=== PATIENT | male | born 1935 | race Caucasian/White ===

== ENCOUNTER → 2020-12-08 14:11 | Outpatient (CLI) | payer OTHER, SELFPAY ==
[2020-12-08 14:48] LABS: Add Manual Diff / Slide Review NO; Basophils Absolute Auto 0 /uL (0-100); Basophils Percent Auto 0.5 % (0-2); Eosinophils Absolute Auto 200 /uL (0-450); Eosinophils Percent Auto 2.5 % (2-4); Hematocrit 34.7 % (41-53); Lymphocytes Absolute Auto 1500 /uL (1100-4500); Lymphocytes Percent Auto 23.6 % (25-40); Mean Corpuscular HGB Conc 34.7 % (30-36); Mean Corpuscular Hemoglobin 30.8 PG (26-34); Mean Corpuscular Volume 88.6 fL (80-100); Monocytes Absolute Auto 600 /uL (0-900); Monocytes Percent Auto 9.8 % (3-14); Neutrophils Absolute Auto 3900 /uL (1500-7000); Neutrophils Percent Auto 63.6 % (50-75); Platelet Count 215 X10^3/uL (150-400); Red Blood Cell Count 3.91 X10^6/uL (4.5-5.9); Red Cell Distribution Width 13.6 % (11.6-14.8); White Blood Cell Count 6.2 X10^3/uL (4.5-11.0)
[2020-12-08 15:16] LABS: BUN Creatinine Ratio 15.7 (6-22); Blood Urea Nitrogen 17 mg/dL (9-20); Calcium 9.4 mg/dL (8.4-10.2); Carbon Dioxide 29 mmol/L (22-32); Chloride 102 mmol/L (98-107); Estimated Glomerular Filt Rate > 60.0 mL/min (>60); Glucose 116 mg/dL (80-110); HEMOLYSIS < 15 (0-50); Potassium 4.8 mmol/L (3.4-5.1); Sodium 139 mmol/L (137-145)
[2020-12-08 15:18] LABS: Hemoglobin A1C% w Est Avg Glu 6.1 % (4.0-6.0)
== END ==
PROVIDERS: Family Provider Family Medicine; PCP Student in an Organized Health Care Education/Training Program; Referring Provider Student in an Organized Health Care Education/Training Program; Visit Provider Student in an Organized Health Care Education/Training Program
DX: I10 Essential (primary) hypertension (principal); E11.9 Type 2 diabetes mellitus without complications; I25.118 Atherosclerotic heart disease of native coronary artery with other forms of angina pectoris
CPT/HCPCS: 36415; 80048; 83036; 85025

== ENCOUNTER → 2021-07-07 12:27 | Outpatient (CLI) | payer OTHER, SELFPAY ==
--- NOTE | 2021-07-07 12:28 | DI.CT.S_ITS ---
PROCEDURE: CT CHEST WO CON INDICATIONS: Right chest wall mass TECHNIQUE: Noncontrast 5 mm thick sections acquired from the pulmonary apices to the posterior costophrenic angles. 1 mm lung window, 5 mm thick coronal and sagittal and 7 mm axial MIP reformats were then acquired. For radiation dose reduction, the following was used: automated exposure control, adjustment of mA and/or kV according to patient size. COMPARISON: None. FINDINGS: Image quality: Excellent. Lungs and pleura: Biapical pleural thickening/scarring. No consolidation, pleural effusions or pneumothorax. No suspicious nodule or mass. Narrowing of the trachea in the transverse dimension. Dilatation of the bronchioles. Mediastinum: Heart size is normal. No pericardial effusion. Coronary artery calcifications. No mediastinal adenopathy by size criteria. Thoracic aorta and central pulmonary arteries are normal in size. Calcified atheromatous change of the aorta. Esophagus is normal in caliber. Small hiatal hernia. Bones and chest wall: No suspicious bony lesions. No vertebral body compression fractures. No axillary or supraclavicular adenopathy by size criteria. A 6.3 x 8.5 x 5.2 cm mass is seen in the right axillary region with area hypoattenuation. Thyroid gland demonstrates homogeneous attenuation. Abdomen: Visualized upper abdominal solid organs and bowel loops appear normal in the absence of contrast. IMPRESSION: Right axillary mass as detailed above, which may contain a hematocrit level or necrotic area. Differential considerations include a neoplasm or hematoma. Dictated by: Lico Grant M.D. on 07/07/2021 at 14:29 Approved by: Lico Grant M.D. on 07/07/2021 at 14:42
== END ==
PROVIDERS: Family Provider Family Medicine; PCP Student in an Organized Health Care Education/Training Program; Referring Provider Student in an Organized Health Care Education/Training Program; Visit Provider Student in an Organized Health Care Education/Training Program
DX: R22.2 Localized swelling, mass and lump, trunk (principal); K44.9 Diaphragmatic hernia without obstruction or gangrene; I25.10 Atherosclerotic heart disease of native coronary artery without angina pectoris
CPT/HCPCS: 71250

== ENCOUNTER 2021-10-04 22:03 | Inpatient (IN) | payer OTHER, SELFPAY ==
[2021-10-04 22:06] VITALS: PULSE 81; O2SAT 97
[2021-10-04 22:07] VITALS: BP 143/69; PULSE 82; O2SAT 96
[2021-10-04 22:15] VITALS: BP 143/69; PULSE 82; RESP 22; TEMP 38.4; O2SAT 97; BMI 26.9
--- NOTE | 2021-10-04 22:15 | DI.RAD.S_ITS ---
PROCEDURE: XR CHEST 1V INDICATIONS: CHEST PROBLEMS TECHNIQUE: One view of the chest was acquired. COMPARISON: [facility], , CHEST 1 VIEW, 06/06/2017, 11:50. FINDINGS: Surgical changes and devices: The calf veins were not well evaluated due to edema. Lungs and pleura: There are indistinct left retrocardiac opacities consistent with consolidation or atelectasis. No pleural effusions or pneumothorax. Mediastinum: Mediastinal contours appear normal. Heart size is normal. Bones and chest wall: No suspicious bony lesions. Overlying soft tissues appear unremarkable. IMPRESSION: 1. Left retrocardiac opacities consistent with consolidation or atelectasis. Dictated by: Skyler Urrutia M.D. on 10/04/2021 at 23:36 Approved by: Skyler Urrutia M.D. on 10/04/2021 at 23:38
--- NOTE | 2021-10-04 22:15 | ED_ITS ---
HPI - Sepsis General Chief Complaint: Fever Evaluation Narrative: 86-year-old male former smoker with history of hyperlipidemia, hypertension and type 2 diabetes presents by EMS for evaluation of fever, shaking chills generalized weakness contributing to at least 2 falls in the absence of injury. Additionally, he complains of urinary frequency and urgency. Denies much in the way of runny nose, sore throat or cough but feels generally fatigued and weak. He denies abdominal pain or diarrhea. Review of Systems Review of Systems Narrative: GENERAL: See HPI HEENT: Denies sinus pain, ear pain, sore throat, difficulty swallowing, dizziness. RESPIRATORY: See HPI CARDIOVASCULAR: Denies chest pain, palpitations, orthopnea, edema, GASTROINTESTINAL: Denies nausea, vomiting, abdominal pain, diarrhea, constipation, melena. : See HPI MUSCULOSKELETAL: denies weakness, joint pain, or bony pain SKIN: Denies rash, skin lesions, or other NEUROLOGIC: Denies weakness, headache, numbness, change in speech, confusion, seizures, incoordination. PSYCHIATRIC: No concerning psychosocial issues. 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 Well-developed patient, in mild distress. Generally weak, ill-appearing HEAD: Atraumatic. Normocephalic. EYES: Pupils equal round and reactive. Extraocular motions intact. No scleral icterus. No injection or drainage. ENT: Nose without bleeding, purulent drainage. Throat without erythema, tonsillar hypertrophy or exudate. Airway patent. NECK: Trachea midline. Non tender CARDIOVASCULAR: Regular rate and rhythm without murmurs, gallops, or rubs. RESPIRATORY: Clear to auscultation. Faint crackles in bilateral bases emergency department suggesting GASTROINTESTINAL: Abdomen soft, non-tender, nondistended. EXTREMITIES: No edema or joint tenderness. BACK: Nontender without deformity or crepitance. No flank tenderness. NEURO: AOx3. SKIN: No rash or erythema of visible areas Initial Vital Signs Initial Vital Signs: Vital Signs Pulse Rate 81 10/04/21 22:06 Pulse Oximetry 97 10/04/21 22:06 Course Orders Ordered: ED Orders 10/04/21 22:15 XR chest 1V Stat 10/04/21 22:27 COVID19 -Nasal RAPID/Pre-Proc Stat Complete Blood Count AUTO DIFF Stat Comprehensive Metabolic Panel Stat Lactate (Lactic Acid) Stat Procalcitonin Stat Troponin & CK Cardiac Panel Stat 10/04/21 22:40 EKG-12 Lead Stat 10/04/21 22:50 Blood Culture Stat 10/04/21 23:16 Urinalysis and Microscopic Stat Urine Culture Stat Acetaminophen (Acetaminophen 325 Mg Tablet) 650 mg PO Q6HR PRN PRN Reason: Fever/Mild Pain (1-3) Azithromycin (Azithromycin 250 Mg Tablet) 500 mg PO DAILY ANA PAULA Stop: 10/09/21 00:00 Dextrose (Dextrose 50 % In Water 25 Gm/50 Ml Syringe) 25 gm IV PRN PRN PRN Reason: Hypoglycemia Enoxaparin Sodium (Enoxaparin 40 Mg/0.4 Ml Syringe) 40 mg SUBCUT DAILY [facility] Enoxaparin Sodium (Enoxaparin 40 Mg/0.4 Ml Syringe) 40 mg SUBCUT DAILY [facility] Sodium Chloride (Normal Saline 0.9%) 2,409 mls @ 803 mls/hr 30 ml/kg infuse over 3 hr (2409 ml) IV NOW ONE Stop: 10/05/21 02:58 Last Admin: 10/05/21 00:11 Dose: 803 mls/hr Documented By: MONTY Sodium Chloride (Normal Saline 0.9%) 1,000 mls @ 100 mls/hr IV CONT ANA PAULA Stop: 11/04/21 10:59 Ceftriaxone Sodium 1,000 mg/ (Sodium Chloride) 100 mls @ 200 mls/hr IV Q24H ANA PAULA Stop: 10/11/21 00:00 Insulin Human Lispro (Insulin Lispro 100 Unit/Ml 3ml Vial) 0 unit SUBCUT ACHS ANA PAULA; Protocol Ondansetron HCl (Ondansetron 4 Mg/2 Ml Inj) 4 mg IV Q6HR PRN PRN Reason: Nausea And Vomiting Discontinued Medications Ceftriaxone Sodium 2,000 mg/ (Sodium Chloride) 100 mls @ 200 mls/hr IV NOW ONE Stop: 10/05/21 00:00 Last Admin: 10/05/21 00:12 Dose: 200 mls/hr Documented By: MONTY Azithromycin 500 mg/ Dextrose 250 mls @ 250 mls/hr IV NOW ONE Stop: 10/05/21 00:00 Vital Signs Vital signs: Vital Signs - 8 hr 10/04/21 22:15 10/04/21 22:06 10/04/21 22:07 Temperature 101.2 F H Pulse Rate 82 81 Respiratory Rate 22 Blood Pressure 143/69 H 143/69 H Pulse Oximetry 97 97 Oxygen Delivery Method Room Air 10/04/21 22:07 10/04/21 22:30 10/04/21 22:30 Temperature Pulse Rate 82 80 Respiratory Rate 20 Blood Pressure 143/66 H Pulse Oximetry 96 96 Oxygen Delivery Method 10/04/21 23:00 10/04/21 23:00 10/04/21 23:30 Temperature Pulse Rate 81 Respiratory Rate 14 Blood Pressure 146/67 H 144/63 H Pulse Oximetry 95 Oxygen Delivery Method 10/04/21 23:30 Temperature Pulse Rate 79 Respiratory Rate 17 Blood Pressure Pulse Oximetry 96 Oxygen Delivery Method Sepsis Guideline Criteria Treatment Initiated Antibiotics:: IV antimicrobials will be initiated as soon as possible after recognition of sepsis state and within one hour for both sepsis and septic shock. MDM - Sepsis Lab Data Result diagrams: 10/04/21 22:27 10/04/21 22:27 Labs: Lab Results 10/04/21 10/04/21 10/04/21 Range/Units 22:27 22:27 22:27 WBC 13.4 H (4.5-11.0) X10^3/uL RBC 3.85 L (4.5-5.9) X10^6/uL Hgb 11.4 L (13.5-17.5) g/dL Hct 32.8 L (41-53) % MCV 85.3 (80-100) fL MCH 29.6 (26-34) PG MCHC 34.8 (30-36) % RDW 13.9 (11.6-14.8) % Plt Count 171 (150-400) X10^3/uL Neut % (Auto) 86.3 H (50-75) % Lymph % (Auto) 5.3 L (25-40) % [place] % (Auto) 7.3 (3-14) % Eos % (Auto) 0.5 L (2-4) % Baso % (Auto) 0.6 (0-2) % Neut # (Auto) 63874 H (2821-3058) /uL Lymph # (Auto) 700 L (1841-7041) /uL [place] # (Auto) 1000 H (0-900) /uL Eos # (Auto) 100 (0-450) /uL Baso # (Auto) 100 (0-100) /uL Sodium 133 L (137-145) mmol/L Potassium 4.3 (3.4-5.1) mmol/L Chloride 99 (98-107) mmol/L Carbon Dioxide 25 (22-32) mmol/L BUN 29 H (9-20) mg/dL Creatinine 1.38 H (0.66-1.25) mg/dL Estimated GFR 49 L (>60) mL/min BUN/Creatinine Ratio 21.0 (6-22) Glucose 144 H (80-110) mg/dL Lactate 1.4 (0.7-2.1) mmol/L Calcium 8.7 (8.4-10.2) mg/dL Total Bilirubin 1.2 (0.2-1.3) mg/dL AST 18 (17-59) IU/L ALT 14 (<50) IU/L Alkaline Phosphatase 87 (38-126) U/L Total Creatine Kinase 71 (55-170) U/L CK-MB (CK-2) TNP CK-MB (CK-2) Rel Index TNP Troponin I < 0.012 (0.01-0.034) ng/mL Total Protein 7.7 (6.3-8.2) g/dL Albumin 4.1 (3.5-5.0) g/dL Globulin 3.6 (1.7-4.1) g/dL Albumin/Globulin Ratio 1.1 (1.0-2.8) Procalcitonin 0.20 (<0.5) ng/mL Urine Color Urine Appearance Urine pH (4.5-8.0) Ur Specific [place] (1.000-1.035) Urine Protein (Negative) Urine Glucose (UA) (Negative) g/dL Urine Ketones (NEGATIVE) Urine Occult Blood (Negative) Urine Nitrate (Negative) Urine Bilirubin (NEGATIVE) Urine Urobilinogen (0.2) E.U./dL Ur Leukocyte Esterase (NEGATIVE) Urine RBC (0-5/HPF) Urine WBC (0-5/HPF) Ur Renal Epithelial Cell (0-1/HPF) Urine Bacteria (None) Ur Culture Indicated? SARS-CoV-2 (PCR) (Negative) 10/04/21 10/04/21 Range/Units 22:27 23:16 WBC (4.5-11.0) X10^3/uL RBC (4.5-5.9) X10^6/uL Hgb (13.5-17.5) g/dL Hct (41-53) % MCV (80-100) fL MCH (26-34) PG MCHC (30-36) % RDW (11.6-14.8) % Plt Count (150-400) X10^3/uL Neut % (Auto) (50-75) % Lymph % (Auto) (25-40) % [place] % (Auto) (3-14) % Eos % (Auto) (2-4) % Baso % (Auto) (0-2) % Neut # (Auto) (0643-7988) /uL Lymph # (Auto) (9183-3029) /uL [place] # (Auto) (0-900) /uL Eos # (Auto) (0-450) /uL Baso # (Auto) (0-100) /uL Sodium (137-145) mmol/L Potassium (3.4-5.1) mmol/L Chloride (98-107) mmol/L Carbon Dioxide (22-32) mmol/L BUN (9-20) mg/dL Creatinine (0.66-1.25) mg/dL Estimated GFR (>60) mL/min BUN/Creatinine Ratio (6-22) Glucose (80-110) mg/dL Lactate (0.7-2.1) mmol/L Calcium (8.4-10.2) mg/dL Total Bilirubin (0.2-1.3) mg/dL AST (17-59) IU/L ALT (<50) IU/L Alkaline Phosphatase (38-126) U/L Total Creatine Kinase (55-170) U/L CK-MB (CK-2) CK-MB (CK-2) Rel Index Troponin I (0.01-0.034) ng/mL Total Protein (6.3-8.2) g/dL Albumin (3.5-5.0) g/dL Globulin (1.7-4.1) g/dL Albumin/Globulin Ratio (1.0-2.8) Procalcitonin (<0.5) ng/mL Urine Color Yellow Urine Appearance Clear Urine pH 6.5 (4.5-8.0) Ur Specific [place] 1.010 (1.000-1.035) Urine Protein 1+ H (Negative) Urine Glucose (UA) Negative (Negative) g/dL Urine Ketones Negative (NEGATIVE) Urine Occult Blood Negative (Negative) Urine Nitrate Negative (Negative) Urine Bilirubin Negative (NEGATIVE) Urine Urobilinogen 4.0 H (0.2) E.U./dL Ur Leukocyte Esterase Trace H (NEGATIVE) Urine RBC 1-5/hpf (0-5/HPF) Urine WBC 0-1/hpf (0-5/HPF) Ur Renal Epithelial Cell 1-5/hpf H (0-1/HPF) Urine Bacteria None seen (None) Ur Culture Indicated? Specimen cultured SARS-CoV-2 (PCR) Negative (Negative) Imaging Data Chest x-ray: Radiologist's Impression: [address] Scan ReportSigned Patient: Ronald Camacho DMR#: [id number]: 1Acct:[id number]/Sex: 80 / MDate of Service: 10/04/21Loc: EDAccession Number: [id number] Procedure: CT angio chest PE protocol Ordering Provider: Sohan Sharp D.O. PROCEDURE: CT ANGIO CHEST PE PROTOCOL INDICATIONS: chest pain, SOB, elevated Dimer, hospitalizations TECHNIQUE: After the administration of intravenous contrast, 2 mm thick sections acquired from the pulmonary apices to the posterior costophrenic angles. 3-dimensional maximum intensity projection (MIP) coronal and sagittal reformats were then acquired through the thorax. For radiation dose reduction, the following was used: automated exposure contro l, adjustment of mA and/or kV according to patient size. COMPARISON: None. FINDINGS: Image quality: Excellent. Pulmonary arteries: Pulmonary arteries are normal in size, and demonstrate no intraluminal filling defects to suggest central pulmonary embolism. Lower Neck: No lymphadenopathy by size criteria. Thyroid: Visualized thyroid demonstrates no discrete nodules. Axillae: No lymphadenopathy by size criteria. Chest Wall: Unremarkable. Bones: Visualized osseous structures demonstrate no suspicious lesions. Lungs and Airways: No acute consolidation. There is atelectasis and scarring in the lungs bilaterally. No suspicious pulmonary nodules. The trachea and central airways are patent. Pleura: No pneumothorax or pleural effusions. Heart: Heart size is markedly enlarged. No pericardial effusion. Thoracic Vessels: The aorta and pulmonary arteries are normal in size. Mediastinum and [place]: No lymphadenopathy by size criteria. Esophagus: No wall thickening. No hiatal hernia. Abdomen: Visualized upper abdominal solid organs appear normal in the early arterial phase of enhancement. IMPRESSION: 1. No evidence of pulmonary embolism. 2. No acute airspace consolidation. 3. Marked cardiomegaly. Dictated by: Skyler Urrutia M.D. on 10/04/2021 at 22:25 Approved by: Skyler Urrutia M.D. on 10/04/2021 at 22:28 Discharge Plan Departure Patient Disposition: Admitted As Inpatient Clinical Impression: Sepsis, Pneumonia, Falls Admit Date/Time: 10/05/21 00:52 Admit Provider: [facility]
[2021-10-04 22:30] VITALS: BP 143/66; PULSE 80; RESP 20; O2SAT 96
[2021-10-04 22:41] LABS: Add Manual Diff / Slide Review NO; Basophils Absolute Auto 100 /uL (0-100); Basophils Percent Auto 0.6 % (0-2); Eosinophils Absolute Auto 100 /uL (0-450); Eosinophils Percent Auto 0.5 % (2-4); Hematocrit 32.8 % (41-53); Hemoglobin 11.4 g/dL (13.5-17.5); Lymphocytes Absolute Auto 700 /uL (1100-4500); Lymphocytes Percent Auto 5.3 % (25-40); Mean Corpuscular HGB Conc 34.8 % (30-36); Mean Corpuscular Hemoglobin 29.6 PG (26-34); Mean Corpuscular Volume 85.3 fL (80-100); Monocytes Absolute Auto 1000 /uL (0-900); Monocytes Percent Auto 7.3 % (3-14); Neutrophils Absolute Auto 11500 /uL (1500-7000); Neutrophils Percent Auto 86.3 % (50-75); Platelet Count 171 X10^3/uL (150-400); Red Blood Cell Count 3.85 X10^6/uL (4.5-5.9); Red Cell Distribution Width 13.9 % (11.6-14.8); White Blood Cell Count 13.4 X10^3/uL (4.5-11.0)
--- NOTE | 2021-10-04 22:42 | PC.NURSE ---
Pt reports increased weakness, dizziness, chills and fever since yesterday. Pt reports SOB when walking and recent onset urinary incontinence. Denies chest pain and headache. Call light within reach.
[2021-10-04 22:52] LABS: Lactate (Lactic Acid) 1.4 mmol/L (0.7-2.1)
[2021-10-04 22:53] LABS: Alanine Aminotransferase 14 IU/L (<50); Albumin 4.1 g/dL (3.5-5.0); Albumin Globulin Ratio 1.1 (1.0-2.8); Alkaline Phosphatase 87 U/L (38-126); Aspartate Aminotransferase 18 IU/L (17-59); Bilirubin Total 1.2 mg/dL (0.2-1.3); Blood Urea Nitrogen 29 mg/dL (9-20); Calcium 8.7 mg/dL (8.4-10.2); Carbon Dioxide 25 mmol/L (22-32); Chloride 99 mmol/L (98-107); Creatine Kinase 71 U/L (55-170); Estimated Glomerular Filt Rate 49 mL/min (>60); Globulin 3.6 g/dL (1.7-4.1); Glucose 144 mg/dL (80-110); HEMOLYSIS < 15 (0-50); Potassium 4.3 mmol/L (3.4-5.1); Sodium 133 mmol/L (137-145); Total Protein 7.7 g/dL (6.3-8.2)
[2021-10-04 23:00] VITALS: BP 146/67; PULSE 81; RESP 14; O2SAT 95
[2021-10-04 23:03] LABS: COVID19 -Nasal RAPID Negative (Negative)
[2021-10-04 23:05] LABS: Troponin I < 0.012 ng/mL (0.01-0.034)
[2021-10-04 23:29] LABS: Appearance Urine UA CLEAR; Bilirubin Urine UA NEGATIVE (NEGATIVE); Color Urine UA YELLOW; Glucose Urine UA NEGATIVE (Negative); Ketones Urine UA NEGATIVE (NEGATIVE); Leukocyte Esterase Urine UA TRACE (NEGATIVE); Nitrite Urine UA NEGATIVE (Negative); Occult Blood Urine UA NEGATIVE (Negative); Protein Urine UA 1+ (Negative); pH Urine UA 6.5 (4.5-8.0)
[2021-10-04 23:30] VITALS: BP 144/63; PULSE 79; RESP 17; O2SAT 96
[2021-10-04 23:38] LABS: Bacteria Urine None Seen; Culture Indicated Urine Specimen Cultured; RBC Urine 1-5/HPF (0-5/HPF); Renal Epithelial Cells Urine 1-5/HPF (0-1/HPF); WBC Urine 0-1/HPF (0-5/HPF)
[2021-10-05] VITALS (36 sets, daily range): BP systolic 116–141; BP diastolic 55–65; PULSE 66–89; RESP 10–25; TEMP 37–37.2; O2SAT 93–97; BMI 27.3
[2021-10-05] MEDS: SODIUM CHLORIDE 0.9% 803 ML IV (00:11)
[2021-10-05] MEDS: cefTRIAXone 2,000 MG in SODIUM CHLORIDE 0.9% 100 ML 200 MG IV (00:12)
--- NOTE | 2021-10-05 00:46 | PC.NURSE ---
0039 received critical lab result r/t increasing troponin Dr. Melendez paged, pt continues to rest comfortably without further complaint no changes to exam
[2021-10-05] MEDS: AZITHROMYCIN 500 MG in DEXTROSE 5% IN WATER 250 ML 250 MG IV (01:18)
[2021-10-05 01:34] LABS: Hemoglobin A1C% w Est Avg Glu 6.2 % (4.0-6.0)
--- NOTE | 2021-10-05 02:18 | P.HP_ITS ---
History of Present Illness History of Present Illness Date Patient Seen: 10/05/21 Time Patient Seen: 01:35 Chief complaint: fever Narrative: Marc Camp is an 86-year-old male former smoker with history of hyperlipidemia, hypertension and type 2 diabetes presented to the ED for evaluation of fever, shaking chills generalized weakness contributing to at least 2 falls in the absence of injury.? Additionally, he complained of urinary frequency and urgency, denied this to me but states he has urinary incontinence.? Stated he had a fever of 91 or 92, not able to provide a reliable history. States he generally feels tired, weak and has balance p roblems.? He denies nausea, vomiting, abdominal pain or diarrhea. He stated his neighbor gives him his pills and that his DPOA is his sister. He is diabetic, but does not know what his numbers are. Chest xray reported left retrocardiac opacities consistent with consolidation or atelectasis. Temp is 101.2?, blood pressure 144/63, heart rate 79, respiratory rate 17, oxygen saturation 96% on room air, he weighs 83.3 kg with a of 26 point. WBC is mildly elevated at 13.4 neutrophil count is 11,005, sodium 133 creatinine 1.3 which appears to be above his baseline with a EGFR 49 glucose 144, A1c is 6.2 troponin is negative UA does indicate protein bilirubin and leukocytes and meets criteria for culture, COVID-19 PCR is negative. 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 Surgical History (Updated 10/05/21 @ 03:01 by EDMOND García) H/O heart artery stent Hx of cataract surgery Family & Social History Family History (Updated 10/05/21 @ 02:31 by EDMOND García) Father Myocardial infarction Mother Old age Safety & Behavioral: Feels Safe in Current Yes Environment Been Physically Hurt or No Threatened By a Person Tobacco & Substance use: Smoking Status Former smoker, quit 25 years ago Substance Use Type does not use Meds Home Medications and Allergies Home Medications Medication Instructions Recorded Confirmed Type amlodipine 5 mg tablet 5 mg PO QAM #90 tabs 01/26/21 07/04/21 Rx atorvastatin 40 mg tablet 40 mg PO QPM #90 tabs 01/26/21 07/04/21 Rx clopidogrel 75 mg tablet (Plavix) 75 mg PO QAM #90 tabs 01/26/21 07/04/21 Rx cyanocobalamin (vitamin B-12) See Rx Instructions .Route 01/26/21 07/04/21 Rx 1,000 mcg tablet .COMPLEX #30 tabs doxazosin 1 mg tablet 1 mg PO QPM #90 tabs 01/26/21 07/04/21 Rx famotidine 20 mg tablet (Pepcid) 20 mg PO BID #180 tabs 01/26/21 07/04/21 Rx losartan 25 mg tablet 75 mg PO QAM #270 tabs 01/26/21 07/04/21 Rx metformin 500 mg tablet 500 mg PO BIDCC #180 tabs 01/26/21 07/04/21 Rx metoprolol tartrate 50 mg tablet 50 mg PO BID #180 tabs 01/26/21 07/04/21 Rx multivitamin with folic acid 400 See Rx Instructions .Route 01/26/21 07/04/21 Rx mcg tablet (Tab-A-Tez) .COMPLEX #30 tabs aspirin 81 mg tablet,delayed 81 mg PO DAILY #30 tabs 01/27/21 07/04/21 Rx release nitroglycerin 0.4 mg sublingual 0.4 mg sublingual QDAYP #25 tabs 01/27/21 07/04/21 Rx tablet (Nitrostat) erythromycin 5 mg/gram (0.5 %) eye 0.5 inch EYE-BOTH DAILY 04/11/21 07/04/21 History ointment docusate sodium 100 mg capsule 100 mg PO DAILY #30 caps 09/07/21 Rx Allergies Allergy/AdvReac Type Severity Reaction Status Date / Time Sulfa (Sulfonamide Allergy Unknown Rash Unverified 07/04/21 15:24 Antibiotics) [SULFA (SULFONAMIDE ANTIBIOTICS)] indomethacin [INDOMETHACIN] AdvReac Unknown Malaise, Unverified 07/04/21 15:24 GI upset Review of Systems Review of Systems ROS: Yes All systems reviewed with the patient and are negative except as otherwise documented Exam Vital Signs (past 8 hours): - 10/04/21 22:15 10/04/21 22:06 10/04/21 22:07 Temperature 101.2 F H Pulse Rate 82 81 Respiratory Rate 22 Blood Pressure 143/69 H 143/69 H Pulse Oximetry 97 97 Oxygen Delivery Method Room Air 10/04/21 22:07 10/04/21 22:30 10/04/21 22:30 Temperature Pulse Rate 82 80 Respiratory Rate 20 Blood Pressure 143/66 H Pulse Oximetry 96 96 Oxygen Delivery Method 10/04/21 23:00 10/04/21 23:00 10/04/21 23:30 Temperature Pulse Rate 81 Respiratory Rate 14 Blood Pressure 146/67 H 144/63 H Pulse Oximetry 95 Oxygen Delivery Method 10/04/21 23:30 Temperature Pulse Rate 79 Respiratory Rate 17 Blood Pressure Pulse Oximetry 96 Oxygen Delivery Method Oxygen Delivery Method Room Air Narrative Exam Narrative: Gen: Alert, oriented, ill appearing 86 y.o. male, lethargic HEENT: normocephalic, atraumatic, conjunctiva clear, sclera non-icteric, oral mucosa pink and moist Neck: supple, full ROM, no JVD, trachea is midline Resp: Lungs CTA, non-labored breathing CV: RRR, no murmur or rubs Abd: soft, obese, non-tender, normoactive BTs Skin: no lesions or rashes, dry and intact Neuro: Alert and oriented X 4 w/no focal deficits. Speech clear and coherent. Extremities: moves all 4 extremities, is ambulatory, negative Corine?s sign Psyche: normal mood and affect. 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 Objective Labs Result Diagrams: 10/04/21 22:27 10/04/21 22:27 Labs: Laboratory Results - last 24 hr 10/04/21 10/04/21 10/04/21 22:27 22:27 22:27 WBC 13.4 H RBC 3.85 L Hgb 11.4 L Hct 32.8 L MCV 85.3 MCH 29.6 MCHC 34.8 RDW 13.9 Plt Count 171 Neut % (Auto) 86.3 H Lymph % (Auto) 5.3 L [place] % (Auto) 7.3 Eos % (Auto) 0.5 L Baso % (Auto) 0.6 Neut # (Auto) 99506 H Lymph # (Auto) 700 L [place] # (Auto) 1000 H Eos # (Auto) 100 Baso # (Auto) 100 Sodium 133 L Potassium 4.3 Chloride 99 Carbon Dioxide 25 BUN 29 H Creatinine 1.38 H Estimated GFR 49 L BUN/Creatinine Ratio 21.0 Glucose 144 H Hemoglobin A1c Lactate 1.4 Calcium 8.7 Total Bilirubin 1.2 AST 18 ALT 14 Alkaline Phosphatase 87 Total Creatine Kinase 71 CK-MB (CK-2) TNP CK-MB (CK-2) Rel Index TNP Troponin I < 0.012 Total Protein 7.7 Albumin 4.1 Globulin 3.6 Albumin/Globulin Ratio 1.1 Procalcitonin 0.20 Urine Color Urine Appearance Urine pH Ur Specific [place] Urine Protein Urine Glucose (UA) Urine Ketones Urine Occult Blood Urine Nitrate Urine Bilirubin Urine Urobilinogen Ur Leukocyte Esterase Urine RBC Urine WBC Ur Renal Epithelial Cell Urine Bacteria Ur Culture Indicated? SARS-CoV-2 (PCR) 10/04/21 10/04/21 10/04/21 22:27 22:27 23:16 WBC RBC Hgb Hct MCV MCH MCHC RDW Plt Count Neut % (Auto) Lymph % (Auto) [place] % (Auto) Eos % (Auto) Baso % (Auto) Neut # (Auto) Lymph # (Auto) [place] # (Auto) Eos # (Auto) Baso # (Auto) Sodium Potassium Chloride Carbon Dioxide BUN Creatinine Estimated GFR BUN/Creatinine Ratio Glucose Hemoglobin A1c 6.2 H Lactate Calcium Total Bilirubin AST ALT Alkaline Phosphatase Total Creatine Kinase CK-MB (CK-2) CK-MB (CK-2) Rel Index Troponin I Total Protein Albumin Globulin Albumin/Globulin Ratio Procalcitonin Urine Color Yellow Urine Appearance Clear Urine pH 6.5 Ur Specific [place] 1.010 Urine Protein 1+ H Urine Glucose (UA) Negative Urine Ketones Negative Urine Occult Blood Negative Urine Nitrate Negative Urine Bilirubin Negative Urine Urobilinogen 4.0 H Ur Leukocyte Esterase Trace H Urine RBC 1-5/hpf Urine WBC 0-1/hpf Ur Renal Epithelial Cell 1-5/hpf H Urine Bacteria None seen Ur Culture Indicated? Specimen cultured SARS-CoV-2 (PCR) Negative Assessment & Plan Assessment & Plan narrative: Marc Camp will be admitted for treatment of sepsis due to a community acquired pneumonia. Suspected sepsis due to a community acquired pneumonia, present on admission * He initially presented with a fever 101.2, probable new CARSON, and elevated white count with a left shift meeting criteria for SIRS * He was started on IV ceftriaxone and azithromycin and this will be continued. CAD, chronic * Continue home dose of clopidogrel 75 mg po daily Essential hypertension,chronic * Continue home dose of amlodipine, losartan, and metoprolol Diabetes type 2, well controlled with an A1c of 6.2 * holding metformin * low dose correctional scale insulin Question of cognitive impairment * Recommend contact with patient's neighbor to see if he is at baseline his lack of remembering details might be due to acute illness. VTE Prophylaxis: Wells risk score 1.5 [X]Enoxaparin 40 mg subQ once daily X Bilateral SCDs Patient is admitted to the inpatient service due to the severity of disease, risks of further disease progression and this stay is expected to exceed 2 midnights. FEN: IV fluids: NS at 100 ml/hour X 2 L, diet: carb controlled, labs: CBC, C/BMP, liver enzymes, Mag, PT/INR Consultants None Dispo: unknown at this time Code status: Full code as discussed with the patient who identifies his sister, Zoya Omalley his surrogate and POA. [X] I have utilized all available immediate resources to obtain, update, or review of the patient's current medications COVID-19 COVID-19 status: Negative Result date/Date tested (Pos, Neg/Pending): 10/05/21 Scores Wells' Criteria for PE Clinical signs and symptoms of DVT: No PE is #1 Dx or equally likely: No Heart rate > 100: No Immobilization at least 3 days or surg in previous 4 weeks: Yes History of PE or DVT: No Hemoptysis: No Malignancy w/Treatment within 6 months or palliative: No Wells' PE Score total: 1.5 Quality VTE Deep Vein Thrombosis/Pulmonary Embolism Present on Admission: No MIPS - Admit The patient?s Advance Care plan is not present because I confirmed today that the patient does not wish or was not able to name a surrogate decision maker or provide an Advance Care Plan.: Yes MIPS - DC The patient has current or prior documentation of left ventricular ejection fraction (LVEF) less than 40%, or moderate or severely depressed left ventricular systolic function.: No
[2021-10-05] MEDS: SODIUM CHLORIDE 0.9% 1,000 ML 100 ML IV (03:18)
[2021-10-05 06:55] LABS: Add Manual Diff / Slide Review NO; Basophils Absolute Auto 0 /uL (0-100); Basophils Percent Auto 0.2 % (0-2); Eosinophils Absolute Auto 100 /uL (0-450); Eosinophils Percent Auto 0.8 % (2-4); Hematocrit 28.9 % (41-53); Hemoglobin 10.3 g/dL (13.5-17.5); Lymphocytes Absolute Auto 1300 /uL (1100-4500); Lymphocytes Percent Auto 12.5 % (25-40); Mean Corpuscular HGB Conc 35.8 % (30-36); Mean Corpuscular Hemoglobin 30.8 PG (26-34); Mean Corpuscular Volume 86.1 fL (80-100); Monocytes Absolute Auto 1000 /uL (0-900); Monocytes Percent Auto 9.5 % (3-14); Neutrophils Absolute Auto 8100 /uL (1500-7000); Platelet Count 138 X10^3/uL (150-400); Red Blood Cell Count 3.35 X10^6/uL (4.5-5.9); Red Cell Distribution Width 13.6 % (11.6-14.8); White Blood Cell Count 10.5 X10^3/uL (4.5-11.0)
[2021-10-05 07:01] LABS: Alanine Aminotransferase 12 IU/L (<50); Albumin 3.2 g/dL (3.5-5.0); Alkaline Phosphatase 72 U/L (38-126); Aspartate Aminotransferase 15 IU/L (17-59); BUN Creatinine Ratio 21.6 (6-22); Bilirubin Total 0.7 mg/dL (0.2-1.3); Bilirubin Unconjugated 0.6 mg/dL (0.0-1.1); Blood Urea Nitrogen 25 mg/dL (9-20); Calcium 7.7 mg/dL (8.4-10.2); Carbon Dioxide 20 mmol/L (22-32); Chloride 107 mmol/L (98-107); Estimated Glomerular Filt Rate > 60 mL/min (>60); Globulin 3.1 g/dL (1.7-4.1); Glucose 131 mg/dL (80-110); HEMOLYSIS < 15 (0-50); Sodium 135 mmol/L (137-145); Total Protein 6.3 g/dL (6.3-8.2)
[2021-10-05] MEDS: AMLODIPINE 5 MG TABLET PO (09:40)
[2021-10-05] MEDS: LOSARTAN 50 MG TABLET 75 MG PO (09:40)
[2021-10-05] MEDS: ENOXAPARIN 40 MG/0.4 ML SYRINGE SUBCUT (09:40)
[2021-10-05] MEDS: CLOPIDOGREL 75 MG TABLET PO (09:48)
[2021-10-05] MEDS: METOPROLOL ER 50 MG TABLET PO ×2 (09:48→21:16)
--- NOTE | 2021-10-05 10:47 | PC.NURSE ---
Hermelinda Smyth (patient's neighbor) called to inquire about picking pt. up. After permission from patient to talk to Hermelinda, she was updated on his plan of care and admission. Hermelinda reports that she has been caring for patient (helping him take his pills and groceryt shop) and that when he is ready t o discharg home, she would like to pixk him up so he does not have to take a taxi and will ahve someone to help him with discharge instructions. She is not DPOA. Per Hermleinda martinez DPOA is a 90 year old family member in [facility]. Hermelinda also reports that she has pt patient's keys to his house. Hermelinda Smyth: [phone]
--- NOTE | 2021-10-05 15:35 | PC.NURSE ---
Pt arrived from ED due to weakness. Pt alert/ oriented. IVF infusing via pump into LAC w/o incidence. Call light w/in reach, bed alarm on for pt safety. Continue w/plan of care.
[2021-10-05] MEDS: ATORVASTATIN 20 MG TABLET 40 MG PO (21:16)
[2021-10-06] MEDS: AZITHROMYCIN 250 MG TABLET 500 MG PO ×2 (00:14→09:10)
[2021-10-06] MEDS: cefTRIAXone 1,000 MG in SODIUM CHLORIDE 0.9% 100 ML 200 MG IV (00:14)
[2021-10-06 00:22] VITALS: BP 126/58; PULSE 74; RESP 16; O2SAT 96
[2021-10-06 03:00] VITALS: BP 134/70; PULSE 78; RESP 18; TEMP 36.5; O2SAT 97
[2021-10-06 06:00] LABS: Add Manual Diff / Slide Review NO; Basophils Absolute Auto 0 /uL (0-100); Basophils Percent Auto 0.3 % (0-2); Eosinophils Absolute Auto 200 /uL (0-450); Eosinophils Percent Auto 2.7 % (2-4); Hematocrit 29.2 % (41-53); Hemoglobin 10.2 g/dL (13.5-17.5); Lymphocytes Absolute Auto 1500 /uL (1100-4500); Lymphocytes Percent Auto 19.6 % (25-40); Mean Corpuscular HGB Conc 34.9 % (30-36); Mean Corpuscular Hemoglobin 30.1 PG (26-34); Mean Corpuscular Volume 86.3 fL (80-100); Monocytes Absolute Auto 700 /uL (0-900); Monocytes Percent Auto 8.8 % (3-14); Neutrophils Absolute Auto 5100 /uL (1500-7000); Neutrophils Percent Auto 68.6 % (50-75); Platelet Count 143 X10^3/uL (150-400); Red Blood Cell Count 3.39 X10^6/uL (4.5-5.9); Red Cell Distribution Width 13.9 % (11.6-14.8); White Blood Cell Count 7.4 X10^3/uL (4.5-11.0)
[2021-10-06 06:11] LABS: BUN Creatinine Ratio 19.6 (6-22); Blood Urea Nitrogen 22 mg/dL (9-20); Calcium 8.1 mg/dL (8.4-10.2); Carbon Dioxide 21 mmol/L (22-32); Chloride 109 mmol/L (98-107); Estimated Glomerular Filt Rate > 60 mL/min (>60); Glucose 127 mg/dL (80-110); HEMOLYSIS < 15 (0-50); Magnesium 1.8 mg/dL (1.6-2.3); Potassium 4.2 mmol/L (3.4-5.1); Sodium 137 mmol/L (137-145)
--- NOTE | 2021-10-06 08:14 | PM.PN.1 ---
Subjective Subjective Date Patient Seen: 10/06/21 Time Patient Seen: 17:00 Interval history: Patient states he feels better and his breathing has improved. He is wondering when he can go home. He is more clear today that knows the year, president a person and place. Exam Vital Signs (past 8 hours): - 10/06/21 00:22 10/06/21 00:22 10/06/21 03:00 Temperature 97.7 F Pulse Rate 74 74 78 Respiratory Rate 16 18 Blood Pressure 126/58 L 134/70 Pulse Oximetry 96 97 Oxygen Flow Rate 0 Oxygen Delivery Method Room Air Oxygen Flow Rate 0 Narrative Exam Narrative: Gen: Alert, oriented x4, 86 y.o. male HEENT: normocephalic, atraumatic, conjunctiva clear, sclera non-icteric, oral mucosa pink and moist Neck: supple, full ROM, no JVD, trachea is midline Resp: Lungs CTA, non-labored breathing CV: RRR, no murmur or rubs Abd: soft, obese, non-tender, normoactive BTs Skin: no lesions or rashes, dry and intact Neuro: Alert and oriented X 4 w/no focal deficits. Speech clear and coherent. Extremities: moves all 4 extremities, is ambulatory, negative Corine?s sign Psyche: normal mood and affect. Objective Labs Result Diagrams: 10/06/21 05:35 10/06/21 05:35 Labs: Laboratory Results - last 24 hr 10/06/21 10/06/21 05:35 05:35 WBC 7.4 RBC 3.39 L Hgb 10.2 L Hct 29.2 L MCV 86.3 MCH 30.1 MCHC 34.9 RDW 13.9 Plt Count 143 L Neut % (Auto) 68.6 Lymph % (Auto) 19.6 L [place] % (Auto) 8.8 Eos % (Auto) 2.7 Baso % (Auto) 0.3 Neut # (Auto) 5100 Lymph # (Auto) 1500 [place] # (Auto) 700 Eos # (Auto) 200 Baso # (Auto) 0 Sodium 137 Potassium 4.2 Chloride 109 H Carbon Dioxide 21 L BUN 22 H Creatinine 1.12 Estimated GFR > 60 BUN/Creatinine Ratio 19.6 Glucose 127 H Calcium 8.1 L Magnesium 1.8 PFSH Medical History Benign prostatic hyperplasia Carotid artery disease Constipation Diabetes mellitus History of elevated PSA Hyperlipidemia Hypertension Impotence Peyronie's disease 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 # Sepsis (resolved) due to a community acquired pneumonia, improving -initially presented with a fever 101.2, and elevated white count with a left shift meeting criteria for SIRS -continue IV ceftriaxone and azithromycin -likely dc on oral abx 10/07 to finish 5 day course # CARSON, resolved -Cr 1.34 on admission, now downtrending -Monitor and avoid nephrotoxic agents # CAD, chronic -Continue home dose of clopidogrel 75 mg po daily # Essential hypertension,chronic -Continue home dose of amlodipine, losartan, and metoprolol # Diabetes type 2, well controlled with an A1c of 6.2 -holding metformin -low dose correctional scale insulin # Question of cognitive impairment -Patient more clear and AOx4 on 10/06 -Will call Leonie his neighbor prior to discharge to make sure he is safe at home, as she previously expressed concern -Patient denies any lack of safely at home VTE Prophylaxis: Wells risk score 1.5 [X]Enoxaparin 40 mg subQ once daily X Bilateral SCDs Dispo: Home +/- on 10/07. Code status: Full code as discussed with the patient who identifies his sister, Zoya Sanderss his surrogate and POA. [X] I have utilized all available immediate resources to obtain, update, or review of the patient's current medications COVID-19 COVID-19 status: Negative Result date/Date tested (Pos, Neg/Pending): 10/05/21 Time Spent With Patient Critical Care time: I spent a total of [] minutes of critical care time on this patient's care today; this time is exclusive of procedural time. Quality VTE Deep Vein Thrombosis/Pulmonary Embolism Present on Admission: No
--- NOTE | 2021-10-06 08:33 | PC.NURSE ---
Addendum entered by Teri Parker R.N. 10/06/21 17:59: into see patient and he will most likely go home tomorrow. He has been confused for me most of the day, but Doctor states that he was mostly alert and oriented this afternoon when talking to him. He has a neighbor that attends to his needs, she brought him here to the Emergency Room. to call her and speak to her about the patient. Original Note: Assess- Patient is confused and oriented x2. He asked why he is in the hospital and did not understand that he has Pneumonia. Lung sounds are clear to ausculation, he has ivf infusing at 100cc/hr and is tolerating this well. Blood sugar 120 and no insulin needed.
[2021-10-06] MEDS: METOPROLOL ER 50 MG TABLET PO ×2 (09:10→20:32)
[2021-10-06] MEDS: AMLODIPINE 5 MG TABLET PO (09:10)
[2021-10-06] MEDS: LOSARTAN 50 MG TABLET 75 MG PO (09:10)
[2021-10-06] MEDS: CLOPIDOGREL 75 MG TABLET PO (09:10)
[2021-10-06] MEDS: ENOXAPARIN 40 MG/0.4 ML SYRINGE SUBCUT (09:10)
[2021-10-06] MEDS: MAGNESIUM SULFATE 2 GM/50 ML PIGGYBACK IV (09:11)
[2021-10-06 10:29] VITALS: BP 138/73; PULSE 74; RESP 16; TEMP 36.1; O2SAT 95
[2021-10-06] MEDS: INSULIN LISPRO 100 UNIT/ML 3ML VIAL SUBCUT (12:30)
[2021-10-06 17:00] VITALS: BP 147/73; PULSE 76; RESP 16; TEMP 36.4; O2SAT 95
[2021-10-06 19:45] VITALS: BP 134/60; PULSE 70; RESP 18; TEMP 36.5; O2SAT 96
[2021-10-06 20:32] VITALS: BP 134/60; PULSE 70
[2021-10-06] MEDS: ATORVASTATIN 20 MG TABLET 40 MG PO (20:32)
[2021-10-07] MEDS: cefTRIAXone 1,000 MG in SODIUM CHLORIDE 0.9% 100 ML 200 MG IV (01:10)
[2021-10-07 01:20] VITALS: BP 139/68; PULSE 64; RESP 17; O2SAT 96
[2021-10-07 05:48] VITALS: BP 142/70; PULSE 69; RESP 16; TEMP 36.4; O2SAT 95
[2021-10-07 06:32] LABS: Add Manual Diff / Slide Review NO; Basophils Absolute Auto 0 /uL (0-100); Basophils Percent Auto 0.4 % (0-2); Eosinophils Absolute Auto 300 /uL (0-450); Eosinophils Percent Auto 4.1 % (2-4); Hematocrit 28.9 % (41-53); Hemoglobin 10.2 g/dL (13.5-17.5); Lymphocytes Absolute Auto 1500 /uL (1100-4500); Mean Corpuscular HGB Conc 35.4 % (30-36); Mean Corpuscular Hemoglobin 30.4 PG (26-34); Mean Corpuscular Volume 85.7 fL (80-100); Monocytes Absolute Auto 600 /uL (0-900); Monocytes Percent Auto 9.8 % (3-14); Neutrophils Absolute Auto 3900 /uL (1500-7000); Neutrophils Percent Auto 61.7 % (50-75); Platelet Count 168 X10^3/uL (150-400); Red Blood Cell Count 3.37 X10^6/uL (4.5-5.9); Red Cell Distribution Width 13.5 % (11.6-14.8); White Blood Cell Count 6.4 X10^3/uL (4.5-11.0)
[2021-10-07 06:37] LABS: BUN Creatinine Ratio 18.7 (6-22); Blood Urea Nitrogen 20 mg/dL (9-20); Calcium 8.4 mg/dL (8.4-10.2); Carbon Dioxide 21 mmol/L (22-32); Chloride 107 mmol/L (98-107); Estimated Glomerular Filt Rate > 60 mL/min (>60); Glucose 126 mg/dL (80-110); HEMOLYSIS < 15 (0-50); Magnesium 1.8 mg/dL (1.6-2.3); Potassium 4.1 mmol/L (3.4-5.1); Sodium 136 mmol/L (137-145)
--- NOTE | 2021-10-07 07:34 | PM.DS.1 ---
History of Present Illness History of Present Illness Chief complaint: fever Narrative: Marc Camp is an 86-year-old male former smoker with history of hyperlipidemia, hypertension and type 2 diabetes presented to the ED for evaluation of fever, shaking chills generalized weakness contributing to at least 2 falls in the absence of injury.? Additionally, he complained of urinary frequency and urgency, denied this to me but states he has urinary incontinence.? Stated he had a fever of 91 or 92, not able to provide a reliable history. States he generally feels tired, weak and has balance problems.? He denies nausea, vomiting, abdominal pain or diarrhea. He stated his neighbor gives him his pills and that his DPOA is his sister. He is diabetic, but does not know what his numbers are. Chest xray reported left retrocardiac opacities consistent with consolidation or atelectasis.? Temp is 101.2?, blood pressure 144/63, heart rate 79, respiratory rate 17, oxygen saturation 96% on room air, he weighs 83.3 kg with a of 26 point.? WBC is mildly elevated at 13.4 neutrophil count is 11,005, sodium 133 creatinine 1.3 which appears to be above his baseline with a EGFR 49 glucose 144, A1c is 6.2 troponin is negative UA does indicate protein bilirubin and leukocytes and meets criteria for culture, COVID-19 PCR is negative. Discharge Providers Provider Date of admission: 10/05/21 00:52 Discharge Date: 10/07/21 Primary care physician: Leonardo Douglas MD Discharge provider: Ajit Reed DO Summary Hospital Course Discharge Diagnosis: # Sepsis (resolved) due to a community acquired pneumonia, improving # CARSON, resolved # CAD, chronic # Essential hypertension,chronic # Diabetes type 2, well controlled with an A1c of 6.2 # Question of cognitive impairment Hospital Course: Patient admitted for community-acquired pneumonia and given 2 days of IV antibiotics with ceftriaxone and azithromycin. He had some confusion initially which resolved prior to discharge. He had an CARSON which also resolved. Was sent home on 3 days of oral cefpodoxime and 1 day of azithromycin to complete course. Blood cultures were negative. Exam Vital Signs (past 8 hours): - 10/07/21 01:20 10/07/21 01:20 10/07/21 05:48 Temperature 97.6 F Pulse Rate 64 64 69 Respiratory Rate 17 16 Blood Pressure 139/68 139/68 142/70 H Pulse Oximetry 96 95 Oxygen Delivery Method Room Air Oxygen Flow Rate 0 Narrative Exam Narrative: Gen: Alert, oriented x4, 86 y.o. male HEENT: normocephalic, atraumatic, conjunctiva clear, sclera non-icteric, oral mucosa pink and moist Neck: supple, full ROM, no JVD, trachea is midline Resp: Lungs CTA, non-labored breathing CV: RRR, no murmur or rubs Abd: soft, obese, non-tender, normoactive BTs Skin: no lesions or rashes, dry and intact Neuro: Alert and oriented X 4 w/no focal deficits. Speech clear and coherent. Extremities: moves all 4 extremities, is ambulatory, negative Corine?s sign Psyche: normal mood and affect. Objective Labs Result Diagrams: 10/07/21 06:00 10/07/21 06:00 Labs: Laboratory Results - last 24 hr 10/07/21 10/07/21 06:00 06:00 WBC 6.4 RBC 3.37 L Hgb 10.2 L Hct 28.9 L MCV 85.7 MCH 30.4 MCHC 35.4 RDW 13.5 Plt Count 168 Neut % (Auto) 61.7 Lymph % (Auto) 24.0 L [place] % (Auto) 9.8 Eos % (Auto) 4.1 H Baso % (Auto) 0.4 Neut # (Auto) 3900 Lymph # (Auto) 1500 [place] # (Auto) 600 Eos # (Auto) 300 Baso # (Auto) 0 Sodium 136 L Potassium 4.1 Chloride 107 Carbon Dioxide 21 L BUN 20 Creatinine 1.07 Estimated GFR > 60 BUN/Creatinine Ratio 18.7 Glucose 126 H Calcium 8.4 Magnesium 1.8 PFSH Medical History Benign prostatic hyperplasia Carotid artery disease Constipation Diabetes mellitus History of elevated PSA Hyperlipidemia Hypertension Impotence 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 Must administer with a meal/food. azithromycin 500 mg tablet 500 mg PO .once Qty: 1 0RF Rx Instructions: Start on 10/08. Continued amlodipine 5 mg tablet 5 mg PO QAM Qty: 90 3RF atorvastatin 40 mg tablet 40 mg PO QPM Qty: 90 3RF clopidogrel [Plavix] 75 mg tablet 75 mg PO QAM Qty: 90 3RF cyanocobalamin (vitamin B-12) 1,000 mcg tablet See Rx Instructions .ROUTE .COMPLEX Qty: 30 11RF Dose Instruction: TAKE (1) TABLET BY MOUTH ONCE DAILY. Rx Instructions: TAKE (1) TABLET BY MOUTH ONCE DAILY IN THE MORNING. losartan 25 mg tablet 75 mg PO QAM Qty: 270 3RF metoprolol tartrate 50 mg tablet 50 mg PO BID Qty: 180 3RF multivitamin with folic acid [Tab-A-Tez] 400 mcg tablet See Rx Instructions .ROUTE .COMPLEX Qty: 30 11RF Dose Instruction: TAKE (1) TABLET BY MOUTH ONCE DAILY. Rx Instructions: TAKE (1) TABLET BY MOUTH ONCE DAILY IN THE MORNING. metformin 500 mg tablet 500 mg PO BIDCC Qty: 180 3RF famotidine [Pepcid] 20 mg tablet 20 mg PO BID Qty: 180 3RF Rx Instructions: Take one tablet by mouth twice daily at least one hr before a meal and with a full glass of water. doxazosin 1 mg tablet 1 mg PO QPM Qty: 90 3RF nitroglycerin [Nitrostat] 0.4 mg tablet, sublingual 0.4 mg Sublingual QDAYP Qty: 25 3RF aspirin 81 mg tablet,delayed release (DR/EC) 81 mg PO DAILY Qty: 30 6RF docusate sodium 100 mg capsule 100 mg PO DAILY Qty: 30 6RF Follow up/Referrals: Leonardo Douglas MD [Primary Care Provider] - Visit Report/Discharge Packet Instructions: DI for Pneumonia -- Adult Discharge Data Primary Care Provider: Stella,Leonardo Quality VTE Deep Vein Thrombosis/Pulmonary Embolism Present on Admission: No
[2021-10-07] MEDS: AMLODIPINE 5 MG TABLET PO (08:31)
[2021-10-07] MEDS: MAGNESIUM SULFATE 2 GM/50 ML PIGGYBACK IV (08:31)
[2021-10-07] MEDS: AZITHROMYCIN 250 MG TABLET 500 MG PO (08:32)
[2021-10-07] MEDS: ENOXAPARIN 40 MG/0.4 ML SYRINGE SUBCUT (08:32)
[2021-10-07] MEDS: CLOPIDOGREL 75 MG TABLET PO (08:33)
[2021-10-07] MEDS: LOSARTAN 50 MG TABLET 75 MG PO (08:33)
[2021-10-07] MEDS: METOPROLOL ER 50 MG TABLET PO (08:33)
[2021-10-07 12:00] VITALS: BP 125/59; PULSE 64; RESP 18; TEMP 36.1; O2SAT 95
--- NOTE | 2021-10-07 12:11 | PC.NURSE ---
Patient is alert but still slightly confused. He denies pain and is talking to the doctor now. He is going to go home today at 1600 and his neighbor is going to pick him up.
--- NOTE | 2021-10-07 16:33 | PC.NURSE ---
Discharge: Patient discharged home, neighbor at bedside for discharge instructions. Discharge instructions given to both patient and neighbor Leonie, discussed importance of F/U with Dr. Douglas, antibiotic adherence, home safety and signs of worsening symptoms. Bev neighbor will make sure patient takes medication as instructed, will pickle pumper Rx at [facility] in [place], and take patient home safely. Neighbor will also help with setting up F/U appointment. Home via private vehicle with all belongings.
== END 2021-10-07 17:00 | disposition home or self-care (01) | DRG 871 ==
LOC: ED 10-05 00:32 → AC 10-05 00:53
PROVIDERS: Admitting Provider Nurse Practitioner Family; Emergency Provider Emergency Medicine; Family Provider Family Medicine; PCP Student in an Organized Health Care Education/Training Program; Referring Provider Emergency Medicine; Visit Provider Nurse Practitioner Family
DX: A41.9 Sepsis, unspecified organism (principal); J18.9 Pneumonia, unspecified organism; N17.9 Acute kidney failure, unspecified; R65.20 Severe sepsis without septic shock; I25.10 Atherosclerotic heart disease of native coronary artery without angina pectoris; I10 Essential (primary) hypertension; E11.9 Type 2 diabetes mellitus without complications; Z79.84 Long term (current) use of oral hypoglycemic drugs; E78.5 Hyperlipidemia, unspecified; Z87.891 Personal history of nicotine dependence; G31.84 Mild cognitive impairment of uncertain or unknown etiology; Z20.822 Contact with and (suspected) exposure to COVID-19
CPT/HCPCS: 36415; 71045; 80048; 80053; 80076; 81001; 82550; 82962; 83036; 83605; 83735; 84145; 84484; 85025; 87040; 87086; 87635; 93005; 93010; 96365; 96366; 96367; 99284; C9803; J0696; J1650; J1815; J3475

== ENCOUNTER → 2022-10-09 10:45 | Outpatient (CLI) | payer OTHER, SELFPAY ==
[2021-10-05 12:28] VITALS: BMI 27.3
--- NOTE | 2022-10-09 | DI.NM.S_ITS ---
PROCEDURE: NM BONE SCAN WHOLE BODY RADIOPHARMACEUTICAL: 20 mCi Tc-99m MDP IV. INDICATIONS: SARCOMA TECHNIQUE: Delayed whole-body scintigrams were obtained approximately 3-4 hours after intravenous injection of radiotracer. Anterior and posterior views were acquired from vertex to feet.>> were obtained. COMPARISON: [facility], CT, HEAD WITHOUT CONTRAST, 06/06/2017, 12:05. [facility], CT, CT CHEST WO CON, 07/07/2021, 12:45. [facility], CT, CT HEAD WITHOUT CONTRAST, 12/21/2016, 12:46. [facility], CR, XR CHEST 1V, 10/04/2021, 22:53. FINDINGS: No abnormal uptake of radiotracer is seen within the bones of the calvarium or bones of the face. No abnormal radiotracer uptake is seen within the cervical spine, thoracic spine, or lumbar spine. No abnormal uptake of radiotracer is seen within the sternum. No abnormal rib uptake is seen. A mild degree of symmetric uptake is seen within the region of the shoulders, which is attributed to degenerative change and is not considered to be pathologic. No abnormal uptake is seen within the upper extremities. No abnormal uptake is seen within the pelvis or within the lower extremities. No abnormal soft tissue uptake is seen. The kidneys demonstrate normal positions. IMPRESSION: No suspicious areas of bone marrow uptake can be seen to suggest bony metastatic disease. Dictated by: Damian Baker M.D. on 10/09/2022 at 14:00 Approved by: Damian Baker M.D. on 10/09/2022 at 14:03
== END ==
PROVIDERS: Family Provider Family Medicine; PCP Student in an Organized Health Care Education/Training Program; Referring Provider Internal Medicine; Visit Provider Internal Medicine
DX: C49.6 Malignant neoplasm of connective and soft tissue of trunk, unspecified (principal)
CPT/HCPCS: 78306; A9503